=== PATIENT | male | born 1965 | race Caucasian/White ===

== ENCOUNTER 2021-03-17 12:38 | Observation (INO) | payer BC ==
[2021-03-17] MEDS ORDERED: ORPHENADRINE 30 MG/ML 2 ML VIAL IVP STA (12:51)
[2021-03-17] MEDS ORDERED: LORazepam 2 MG/ML INJ IV STA (12:51)
[2021-03-17] MEDS ORDERED: HYDROmorphone 1 MG/ML 1 ML SYRINGE IVP STA (12:51)
--- NOTE | 2021-03-17 12:57 | ED ---
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 He presented to [facility]. Unable to reduce the suspected hernia. Patient denies any fevers chills nausea vomiting sweats he states he did have a lot of pain it was 9/10 when he presented initially currently is about 5/10. She had no change in bowel habits no dysuria hematuria or other symptoms reported. He does admit to drinking 3 or 4 beers a day no other medical issues reported. MD Complaint: abdominal pain - Related Data Home Medications Medication Instructions Recorded Confirmed No Known Home Medications 03/17/21 03/17/21 Allergies Allergy/AdvReac Type Severity Reaction Status Date / Time No Known Allergies Allergy Verified 03/17/21 13:27 Review of Systems ROS Statement: Those systems with pertinent positive or pertinent negative responses have been documented in the HPI. ROS Other: All systems not noted in ROS Statement are negative. General Exam - General Exam Comments Initial Comments: This is a well-developed well-nourished awake alert oriented times 3 male General appearance: alert, anxious Head exam: Present: atraumatic, normocephalic, normal inspection Eye exam: Present: normal appearance, PERRL, EOMI. Absent: scleral icterus, conjunctival injection, periorbital swelling ENT exam: Present: normal exam, mucous membranes moist Neck exam: Present: normal inspection, full ROM. Absent: tenderness, meningismus, lymphadenopathy Respiratory exam: Present: normal lung sounds bilaterally. Absent: respiratory distress, wheezes, rales, rhonchi, stridor Cardiovascular Exam: Present: regular rate, normal rhythm, normal heart sounds. Absent: systolic murmur, diastolic murmur, rubs, gallop, clicks GI/Abdominal exam: Present: soft, tenderness, normal bowel sounds, hernia (Right inguinal hernia that appears to be incarcerated with tenderness to palpation. No overt guarding or rebound this time.). Absent: distended, guarding, rebound, rigid Rectal exam: Present: deferred exam: Present: normal inspection Extremities exam: Present: normal inspection, full ROM, normal capillary refill. Absent: tenderness, pedal edema, joint swelling, calf tenderness Back exam: Present: normal inspection Neurological exam: Present: alert, oriented X3, CN II-XII intact Psychiatric exam: Present: normal affect, normal mood Skin exam: Present: warm, dry, intact, normal color. Absent: rash Course Vital Signs 03/17/21 03/17/21 03/17/21 12:45 13:38 13:44 Temperature 99.6 F Pulse Rate 72 67 60 Respiratory 18 18 18 Rate Blood Pressure 167/107 154/99 183/114 O2 Sat by Pulse 97 100 100 Oximetry 03/17/21 03/17/21 03/17/21 13:50 14:05 14:20 Temperature Pulse Rate 62 56 L 60 Respiratory 18 18 18 Rate Blood Pressure 177/103 175/102 176/100 O2 Sat by Pulse 100 100 100 Oximetry 03/17/21 14:35 Temperature Pulse Rate 62 Respiratory 18 Rate Blood Pressure 168/94 O2 Sat by Pulse 100 Oximetry - Reevaluation(s) Reevaluation #1: 03/17/21 14:13 The patient has a right inguinal hernia I did attempt to reduce the hernia under sedation without success. Dr. Mckeon was consulted regarding the knee. Procedures - Procedural Sedation Procedural Sedation Start Time: 13:38 Procedural Sedation Stop Time: 13:48 Indications: other ASA Class: II Mallampati Airway Score: 1 Time of Last PO Intake: 18:00 Preparation: site monitor applied, pulse oximeter, capnometry used, supplemental O2 applied, reversal agents at bedside, suction/airway equipment at bedside, IV secured IV Propofol Dose (mgs): 120 Complications: none Patient Tolerated Procedure: no complications Medical Decision Making - Medical Decision Making I did discuss the findings with the patient as well as with Dr. Mckeon who did come see the patient patient was admitted for evaluation treatment of a little hernia that is incarcerated - Lab Data Result diagrams: 03/17/21 13:03 03/17/21 13:03 Lab Results 03/17/21 03/17/21 03/17/21 Range/Units 13:03 13:03 13:03 WBC 6.4 (3.8-10.6) k/uL RBC 5.47 (4.30-5.90) m/uL Hgb 18.4 H (13.0-17.5) gm/dL Hct 52.4 (39.0-53.0) % MCV 95.6 (80.0-100.0) fL MCH 33.6 (25.0-35.0) pg MCHC 35.1 (31.0-37.0) g/dL RDW 12.6 (11.5-15.5) % Plt Count 255 (150-450) k/uL MPV 6.6 Neutrophils % 83 % Lymphocytes % 7 % Monocytes % 7 % Eosinophils % 1 % Basophils % 1 % Neutrophils # 5.3 (1.3-7.7) k/uL Lymphocytes # 0.5 L (1.0-4.8) k/uL Monocytes # 0.4 (0-1.0) k/uL Eosinophils # 0.0 (0-0.7) k/uL Basophils # 0.0 (0-0.2) k/uL PT (9.0-12.0) sec INR (<1.2) APTT (22.0-30.0) sec Sodium 133 L (137-145) mmol/L Potassium 4.3 (3.5-5.1) mmol/L Chloride 101 (98-107) mmol/L Carbon Dioxide 22 (22-30) mmol/L Anion Gap 10 mmol/L BUN 7 L (9-20) mg/dL Creatinine 0.67 (0.66-1.25) mg/dL Est GFR (CKD-EPI)AfAm >90 (>60 ml/min/1.73 sqM) Est GFR (CKD-EPI)NonAf >90 (>60 ml/min/1.73 sqM) Glucose 93 (74-99) mg/dL Plasma Lactic Acid Margarito (0.7-2.0) mmol/L Calcium 9.2 (8.4-10.2) mg/dL Magnesium 1.7 (1.6-2.3) mg/dL Total Bilirubin 0.9 (0.2-1.3) mg/dL AST 37 (17-59) U/L ALT 24 (4-49) U/L Alkaline Phosphatase 68 (38-126) U/L Creatine Kinase 46 L (55-170) U/L Total Protein 6.8 (6.3-8.2) g/dL Albumin 4.1 (3.5-5.0) g/dL Lipase 18 L (23-300) U/L Urine Color Yellow Urine Appearance Clear (Clear) Urine pH 6.0 (5.0-8.0) Ur Specific [place] 1.025 (1.001-1.035) Urine Protein Negative (Negative) Urine Glucose (UA) Negative (Negative) Urine Ketones 2+ H (Negative) Urine Blood Negative (Negative) Urine Nitrite Negative (Negative) Urine Bilirubin Negative (Negative) Urine Urobilinogen 0.0 (<2.0) mg/dL Ur Leukocyte Esterase Negative (Negative) 03/17/21 03/17/21 Range/Units 13:03 15:06 WBC (3.8-10.6) k/uL RBC (4.30-5.90) m/uL Hgb (13.0-17.5) gm/dL Hct (39.0-53.0) % MCV (80.0-100.0) fL MCH (25.0-35.0) pg MCHC (31.0-37.0) g/dL RDW (11.5-15.5) % Plt Count (150-450) k/uL MPV Neutrophils % % Lymphocytes % % Monocytes % % Eosinophils % % Basophils % % Neutrophils # (1.3-7.7) k/uL Lymphocytes # (1.0-4.8) k/uL Monocytes # (0-1.0) k/uL Eosinophils # (0-0.7) k/uL Basophils # (0-0.2) k/uL PT 10.4 (9.0-12.0) sec INR 1.0 (<1.2) APTT 23.7 (22.0-30.0) sec Sodium (137-145) mmol/L Potassium (3.5-5.1) mmol/L Chloride (98-107) mmol/L Carbon Dioxide (22-30) mmol/L Anion Gap mmol/L BUN (9-20) mg/dL Creatinine (0.66-1.25) mg/dL Est GFR (CKD-EPI)AfAm (>60 ml/min/1.73 sqM) Est GFR (CKD-EPI)NonAf (>60 ml/min/1.73 sqM) Glucose (74-99) mg/dL Plasma Lactic Acid Margarito 1.0 (0.7-2.0) mmol/L Calcium (8.4-10.2) mg/dL Magnesium (1.6-2.3) mg/dL Total Bilirubin (0.2-1.3) mg/dL AST (17-59) U/L ALT (4-49) U/L Alkaline Phosphatase (38-126) U/L Creatine Kinase (55-170) U/L Total Protein (6.3-8.2) g/dL Albumin (3.5-5.0) g/dL Lipase (23-300) U/L Urine Color Urine Appearance (Clear) Urine pH (5.0-8.0) Ur Specific [place] (1.001-1.035) Urine Protein (Negative) Urine Glucose (UA) (Negative) Urine Ketones (Negative) Urine Blood (Negative) Urine Nitrite (Negative) Urine Bilirubin (Negative) Urine Urobilinogen (<2.0) mg/dL Ur Leukocyte Esterase (Negative) - Radiology Data Radiology results: report reviewed (Imaging reviewed no definite acute processes right inguinal hernia suspected), image reviewed Disposition Clinical Impression: Incarcerated right inguinal hernia Disposition: ADMITTED IP TO THIS [facility] Condition: Fair Referrals: Jack Gallo MD [Primary Care Provider] - 1-2 days
[2021-03-17] MEDS ORDERED: PROCHLORPERAZINE INJ 10 MG/2 ML VIAL IVP STA (13:06)
[2021-03-17 13:07] LABS: Basophils % (A) 1 %; Eosinophils % (A) 1 %; HCT 52.4 % (39.0-53.0); HGB 18.4 gm/dL (13.0-17.5); Lymphocytes # (A) 0.5 k/uL (1.0-4.8); Lymphocytes % (A) 7 %; MCH 33.6 pg (25.0-35.0); MCHC 35.1 g/dL (31.0-37.0); MCV 95.6 fL (80.0-100.0); Mean Platelet Volume 6.6; Monocytes # (A) 0.4 k/uL (0-1.0); Monocytes % (A) 7 %; Neutrophils # (A) 5.3 k/uL (1.3-7.7); Neutrophils % (A) 83 %; Platelet Count 255 k/uL (150-450); RBC 5.47 m/uL (4.30-5.90); RDW 12.6 % (11.5-15.5); WBC 6.4 k/uL (3.8-10.6)
[2021-03-17 13:16] LABS: ALT 24 U/L (4-49); AST 37 U/L (17-59); African American GFR (CKD) >90 (>60 ml/min/1.73 sqM); Albumin 4.1 g/dL (3.5-5.0); Alkaline Phosphatase 68 U/L (38-126); Anion Gap 10 mmol/L; Blood Urea Nitrogen 7 mg/dL (9-20); Calcium 9.2 mg/dL (8.4-10.2); Carbon Dioxide 22 mmol/L (22-30); Chloride 101 mmol/L (98-107); Creatine Kinase 46 U/L (55-170); Glucose 93 mg/dL (74-99); Lipase 18 U/L (23-300); Magnesium 1.7 mg/dL (1.6-2.3); Non-African American GFR(CKD) >90 (>60 ml/min/1.73 sqM); Potassium 4.3 mmol/L (3.5-5.1); Sodium 133 mmol/L (137-145); Total Bilirubin 0.9 mg/dL (0.2-1.3); Total Protein 6.8 g/dL (6.3-8.2)
[2021-03-17] MEDS ORDERED: PROPOFOL 10 MG/ML 20 ML VIAL IV ONE ×2 (13:18→16:33)
[2021-03-17 14:05] LABS: Appearance,Urine Clear (Clear); Color,Urine Yellow; Specific Gravity,Urine 1.025 (1.001-1.035)
[2021-03-17 14:06] LABS: Bilirubin,Urine Negative (Negative); Blood,Urine Negative (Negative); Glucose,Urine (UA) Negative (Negative); Ketones,Urine 2+ (Negative); Protein,Urine Negative (Negative)
[2021-03-17 14:07] LABS: Leukocyte Esterase,Urine Negative (Negative); Nitrite,Urine Negative (Negative)
--- NOTE | 2021-03-17 14:21 | XR ---
EXAMINATION TYPE: XR KUB portable DATE OF EXAM: 03/17/2021 COMPARISON: None TECHNIQUE: 2 views supine FINDINGS: History as lump. Hernia. Bowel gas pattern is normal. There is no sign of intestinal obstruction or pneumoperitoneum. Fecal pa ttern is normal. There is some asymmetric increased soft tissue density over the right inguinal regio n that could be a hernia sac.. Bony structures are intact. IMPRESSION: Possible right-sided inguinal hernia. No acute bone gas pattern.
[2021-03-17 15:20] LABS: Partial Thromboplastin Time 23.7 sec (22.0-30.0); Prothrombin Time 10.4 sec (9.0-12.0)
--- NOTE | 2021-03-17 15:40 | P.GSHP ---
History of Present Illness H&P Date: 03/17/21 Chief Complaint: hernia The patient's a 55-year-old man who has a history of a right inguinal hernia for "quite sometime "yesterday began getting sore very painful this morning so he went to [facility]. He was seen in the ER they were unable to reduce it. He was transferred here and another attempt at reduction was made using propofol. The patient has not had fevers or chills, nausea or vomiting. No prior hernia repairs. He does have a known umbilical hernia which is not bothering him. Past Medical History Past Medical History: No Reported History History of Any Multi-Drug Resistant Organisms: None Reported Past Surgical History: No Surgical Hx Reported Past Psychological History: No Psychological Hx Reported Smoking Status: Never smoker Past Alcohol Use History: Daily Past Drug Use History: Marijuana Medications and Allergies Home Medications Medication Instructions Recorded Confirmed Type No Known Home Medications 03/17/21 03/17/21 History Allergies Allergy/AdvReac Type Severity Reaction Status Date / Time No Known Allergies Allergy Verified 03/17/21 13:27 Surgical - Exam Osteopathic Statement: *. No significant issues noted on an osteopathic structural exam other than those noted in the History and Physical/Consult. Vital Signs Temp Pulse Resp BP Pulse Ox 99.6 F 72 18 167/107 97 03/17/21 12:45 03/17/21 12:45 03/17/21 12:45 03/17/21 12:45 03/17/21 12:45 - General Appears uncomfortable well developed, well nourished - Neck trachea midline - Respiratory normal expansion, clear to auscultation - Cardiovascular Rhythm: regular - Abdomen Abdomen: soft, non tender Hernia: inguinal (Large nonreducible), umbilical (Small nontender) Results - Labs 03/17/21 13:03 03/17/21 13:03 Abnormal Lab Results - Last 24 Hours (Table) 03/17/21 03/17/21 03/17/21 Range/Units 13:03 13:03 13:03 Hgb 18.4 H (13.0-17.5) gm/dL Lymphocytes # 0.5 L (1.0-4.8) k/uL Sodium 133 L (137-145) mmol/L BUN 7 L (9-20) mg/dL Creatine Kinase 46 L (55-170) U/L Lipase 18 L (23-300) U/L Urine Ketones 2+ H (Negative) Diabetes panel 03/17/21 Range/Units 13:03 Sodium 133 L (137-145) mmol/L Potassium 4.3 (3.5-5.1) mmol/L Chloride 101 (98-107) mmol/L Carbon Dioxide 22 (22-30) mmol/L BUN 7 L (9-20) mg/dL Creatinine 0.67 (0.66-1.25) mg/dL Glucose 93 (74-99) mg/dL Calcium 9.2 (8.4-10.2) mg/dL AST 37 (17-59) U/L ALT 24 (4-49) U/L Alkaline Phosphatase 68 (38-126) U/L Total Protein 6.8 (6.3-8.2) g/dL Albumin 4.1 (3.5-5.0) g/dL Calcium panel 03/17/21 Range/Units 13:03 Calcium 9.2 (8.4-10.2) mg/dL Albumin 4.1 (3.5-5.0) g/dL Pituitary panel 03/17/21 Range/Units 13:03 Sodium 133 L (137-145) mmol/L Potassium 4.3 (3.5-5.1) mmol/L Chloride 101 (98-107) mmol/L Carbon Dioxide 22 (22-30) mmol/L BUN 7 L (9-20) mg/dL Creatinine 0.67 (0.66-1.25) mg/dL Glucose 93 (74-99) mg/dL Calcium 9.2 (8.4-10.2) mg/dL Adrenal panel 03/17/21 Range/Units 13:03 Sodium 133 L (137-145) mmol/L Potassium 4.3 (3.5-5.1) mmol/L Chloride 101 (98-107) mmol/L Carbon Dioxide 22 (22-30) mmol/L BUN 7 L (9-20) mg/dL Creatinine 0.67 (0.66-1.25) mg/dL Glucose 93 (74-99) mg/dL Calcium 9.2 (8.4-10.2) mg/dL Total Bilirubin 0.9 (0.2-1.3) mg/dL AST 37 (17-59) U/L ALT 24 (4-49) U/L Alkaline Phosphatase 68 (38-126) U/L Total Protein 6.8 (6.3-8.2) g/dL Albumin 4.1 (3.5-5.0) g/dL Assessment and Plan (1) Incarcerated right inguinal hernia Current Visit: Yes Status: Acute Code(s): K40.30 - UNIL INGUINAL HERNIA, W OBST, W/O GANGR, NOT SPCF RECUR SNOMED Code(s): 079310162 Plan: Right inguinal hernia repair. I'll look at the hernia contents to make sure there is no compromised bowel. As long as the hernia contents are unremarkable, repair will be made at the same time. The procedure, risk and complications w ere discussed. Questions were encouraged and answered. Although unlikely, there would be a slight possibility of the need for laparotomy if any significant bowel resection was needed. Questions were encouraged and answered.
[2021-03-17] MEDS ORDERED: LACTATED RINGERS 1,000 ML IV ONE ×2 (15:50→17:59)
[2021-03-17] MEDS ORDERED: ONDANSETRON 4 MG/2 ML VIAL IVP ONE (16:05)
[2021-03-17] MEDS ORDERED: DEXAMETHASONE SOD PHOSPHATE 10 MG/ML 1 ML VIAL IV ONE (16:05)
[2021-03-17] MEDS ORDERED: fentaNYL (PF) 50 MCG/ML 2 ML AMP ONE (16:33)
[2021-03-17] MEDS ORDERED: KETOROLAC 15 MG/ML 1 ML VIAL ONE (16:33)
[2021-03-17] MEDS ORDERED: MIDAZOLAM 2 MG/2 ML VIAL ONE (16:33)
[2021-03-17] MEDS ORDERED: GLYCOPYRROLATE 0.2 MG/ML 2 ML VIAL ONE (16:33)
[2021-03-17] MEDS ORDERED: SUCCINYLCHOLINE CHLORIDE 100 MG/5 ML SYR IV ONE (16:33)
[2021-03-17] MEDS ORDERED: NEOSTIGMINE 1 MG/ML 10 ML VIAL ONE (16:33)
[2021-03-17] MEDS ORDERED: ROCURONIUM 10 MG/ML (5 ML VIAL) IV ONE (16:33)
[2021-03-17] MEDS ORDERED: LIDOCAINE 1% INJ 10MG/ML (20 ML MDV) ONE (16:33)
[2021-03-17] MEDS ORDERED: LIDOCAINE 0.5%-EPI 1:200,000 50 ML VIAL SQ ONE (17:05)
[2021-03-17] MEDS ORDERED: HYDROcodone/APAP 5-325MG 1 EACH TAB PO PRN ×2 (18:01)
[2021-03-17] MEDS ORDERED: HYDROmorphone 1 MG/ML 1 ML SYRINGE IVP PRN (18:01)
[2021-03-17] MEDS ORDERED: NALOXONE 0.4 MG/ML 1 ML VIAL IV PRN (18:01)
--- NOTE | 2021-03-17 18:01 | P.OP ---
Date of Procedure: 03/17/21 Preoperative Diagnosis: Incarcerated right inguinal hernia Postoperative Diagnosis: Incarcerated right inguinal hernia Procedure(s) Performed: Right inguinal herniorrhaphy with mesh and exteriorization of the cord Anesthesia: CONNIE Surgeon: Radha Mckeon Estimated Blood Loss (ml): 25 Pathology: none sent Condition: stable Disposition: PACU Indications for Procedure: Patient presented with a painful incarcerated inguinal hernia which was not able to be reduced Description of Procedure: The patient's taken the OR worrisome prepped and draped in the usual sterile manner under a general endotracheal anesthetic. Local anesthetic was instilled into the skin and subcutaneous tissues. An incision was made in the right groin. Dissection was carried down to the hernia. The subcutaneous tissues were divided off the roof of the inguinal canal. The external oblique was then divided with scissors. Tediously the hernia sac is dissected free. The contents appeared viable. It was able to be dissected free from the cord and cord structures to the bifurcation. The hernia was then reduced into the abdominal cavity. The floor of the inguinal canal was fairly destroyed from the large hernia. The subfascial layer was dissected free. A 3 x 6" mesh was then trimmed to size. It was sutured to the reflected portion of the Poupart ligament inferiorly. It was then sutured superiorly. The limbs were brought together laterally. External oblique fascia was closed with 0 Vicryl laterally. The cord was then retracted up and the medial portion of the fascia was closed exterior arising the cord. The skin was then closed with 4-0 Vicryl in a subcuticular manner. Steri-Strips and dressings were applied. He tolerated the procedure without difficulty and was taken to recovery room in satisfactory condition. According to or personnel, WERE correct. Monitored overnight and given prophylactic antibiotics. Likely be able to be discharged tomorrow.
[2021-03-17] MEDS ORDERED: D5-0.45% NACL WITH KCL 20MEQ/L 1,000 ML IV SCH (18:15)
[2021-03-17] MEDS: KETOROLAC 15 MG/ML 1 ML VIAL IVP SCH (19:20)
[2021-03-17 23:26] VITALS: RESP 18
[2021-03-18] MEDS: KETOROLAC 15 MG/ML 1 ML VIAL IVP SCH ×2 (05:48)
[2021-03-18 08:14] VITALS: BP 143/91; PULSE 81; TEMP 98.8
--- NOTE | 2021-03-18 09:18 | P.DS ---
Providers Date of admission: 03/17/21 16:00 Expected date of discharge: 03/18/21 Attending physician: Radha Mckeon Primary care physician: Jack Gallo - Discharge Diagnosis(es) (1) Incarcerated right inguinal hernia Current Visit: Yes Status: Acute Hospital Course: The patient presented with an acutely incarcerated inguinal hernia. It was unable to be reduced in the ER with IV sedation. He is subsequently taken to the OR where he underwent a inguinal herniorrhaphy with mesh. He was given prophylactic antibiotics and monitored overnight. By postoperative day 1 he was doing well. Minimal discomfort. Tolerating a diet. Urinating well. Lacey to be stable for discharge. He didn't want any pain medication, he said he would take an [id number] anti-inflammatory Assessment: Incarcerated inguinal hernia Patient Condition at Discharge: Good Plan - Discharge Summary Discharge Rx Participant: No New Discharge Prescriptions: No Action No Known Home Medications Discharge Medication List No Known Home Medications 03/17/21 [History] Follow up Appointment(s)/Referral(s): Jack Gallo MD [Primary Care Provider] - 1-2 days Radha Mckeon DO [Doctor of Osteopathic Medicine] - 2 Weeks Activity/Diet/Wound Care/Special Instructions: Ice to the groin and scrotum for 24 hours. You may shower starting Friday. Leave the dressing on until Friday. It may then be removed. Leave the Steri-Strips(little tapes) on the skin until next weekend. Expect some bruising. Tylenol, Advil or Aleve as needed for discomfort. Avoid lifting greater than 10 pounds(a gallon of milk). Call the office if you have questions or concerns Discharge Disposition: HOME SELF-CARE
[2021-03-18 12:42] LABS: African American GFR (CKD) 109.5 (60.0-200.0); Anion Gap 7.9 mmol/L (4.00-12.00); BUN/Creat Ratio 8.89 Ratio (12.00-20.00); Calcium 8.7 mg/dL (8.7-10.3); Carbon Dioxide 26.1 mmol/L (21.6-31.8); Non-African American GFR(CKD) 94.5 (60.0-200.0); Potassium 4.5 mmol/L (3.5-5.5)
[2021-03-18 12:43] LABS: Basophils # (A) 0.04 X 10*3/uL (0.00-0.10); Basophils % (A) 0.4 %; Eosinophils # (A) 0.01 X 10*3/uL (0.04-0.35); Eosinophils % (A) 0.1 %; HCT 49.4 % (39.6-50.0); HGB 17.2 g/dL (13.0-17.0); Lymphocytes # (A) 0.57 X 10*3/uL (0.90-5.00); MCH 33.1 pg (27.0-32.0); MCHC 34.8 g/dL (32.0-37.0); MCV 95.2 fL (80.0-97.0); Mean Platelet Volume 9.2 fL (9.5-12.2); Monocytes # (A) 0.96 X 10*3/uL (0.20-1.00); Monocytes % (A) 10.1 %; Neutrophils # (A) 7.86 X 10*3/uL (1.80-7.70); Neutrophils % (A) 83.1 %; Platelet Count 244 X 10*3/uL (140-440); RBC 5.19 X 10*6/uL (4.40-5.60); RDW 12.5 % (11.5-14.5); WBC 9.47 X 10*3/uL (4.50-10.00)
== END 2021-03-18 11:50 | disposition home or self-care (01) ==
LOC: EC 12:38 → 4SSUR 16:00
PROVIDERS: ADMIT Surgery; ATTEND Surgery
DX: K40.30 Unilateral inguinal hernia, with obstruction, without gangrene, not specified as recurrent (principal); K42.9 Umbilical hernia without obstruction or gangrene
CPT/HCPCS: 96374; 96375; 99285; 36415; 80053; 80048; 82550; 83605; 83690; 83735; 85025 ×2; 85610; 85730; 81003; 87635; 74018; 49507; G0378 ×2; C1781; J2250; J2060; J0780; J1100; J2360; J2710; J0690 ×2; J2405; J2001; J3010; J1170; J1885 ×2; J0330; J2704